=== PATIENT | male | born 2000 | race African-American/Black ===

== ENCOUNTER 2019-09-13 14:56 | Emergency (ER) | payer OTHER ==
[~2019-09-13] VITALS: Ht 172.7 cm; Wt 117.0 kg
[2019-09-13 17:31] LABS: ABSOLUTE NEUTROPHILS 5.3 thou/uL (1.4-8.2); BASOPHILS 0.3 % (0.0-2.0); EOSINOPHILS 7.8 % (0.0-3.0); HEMATOCRIT 47.4 % (42.0-52.0); HEMOGLOBIN 15.5 gm/dL (14.0-18.0); LYMPHOCYTES 24.3 % (24.0-44.0); MCH 29.1 pg (26.0-34.0); MCHC 32.8 g/dL (28.0-37.0); MCV 88.9 fL (80.0-100.0); MONOCYTES 7.3 % (1.0-8.0); PLATELET COUNT 150 thou/uL (150-400); POLYS 60.3 % (36.0-66.0); RBC 5.33 mil/uL (4.50-6.00); RDW 14.7 % (10.5-14.5); WBC 8.8 thou/uL (4.0-11.0)
[2019-09-13 17:40] LABS: CALCIUM 9.4 mg/dL (8.5-10.1)
[2019-09-13 17:46] LABS: ALBUMIN 3.9 g/dL (3.4-5.0); TOTAL BILIRUBIN 0.5 mg/dL (<0.1-1.0); TOTAL PROTEIN 7.8 g/dL (6.4-8.2)
[2019-09-13] MEDS ORDERED: PREDNISONE 20 M20 MG PO (18:24)
[2019-09-13] MEDS ORDERED: IPRATROPIU0.2 MG/1 M INH (18:24)
[2019-09-13] MEDS ORDERED: VENTOLIN HFA 1818 GM INH (18:24)
[2019-09-13] MEDS ORDERED: ALBUTEROL2.5 MG/31 INH (18:24)
[2019-09-13 18:31] VITALS: BP 121/69
== END 2019-09-13 18:31 | disposition home or self-care (01) ==
LOC: ER 14:56
PROVIDERS: Physician Assistant
DX: J45.901 Unspecified asthma with (acute) exacerbation (principal)